=== PATIENT | male | born 1985 | race Caucasian/White ===

== ENCOUNTER 2020-10-02 23:11 | Emergency (ER) | payer SELFPAY ==
[~2020-10-02] VITALS: Ht 180.3 cm; Wt 72.7 kg
[2020-10-02 23:23] VITALS: BP 130/61; Ht 180.3 cm; Wt 72.7 kg
[2020-10-03] MEDS ORDERED: CEPHALEXIN500 M1 PO (01:00)
== END 2020-10-03 01:37 | disposition home or self-care (01) ==
LOC: D.ER 23:11
DX: S61.411A Laceration without foreign body of right hand, initial encounter (principal); W25.XXXA Contact with sharp glass, initial encounter; Y93.9 Activity, unspecified; Y92.9 Unspecified place or not applicable